=== PATIENT | female | born 1950 | race Caucasian/White ===

== ENCOUNTER → 2018-09-28 | Outpatient (CLI) | payer MEDICARE, OTHER | END | disposition home or self-care (01) | LOC: RAH 14:04 | PROVIDERS: ATTEND Nurse Practitioner Adult Health | DX: N39.0 Urinary tract infection, site not specified (principal); Z87.440 Personal history of urinary (tract) infections | CPT/HCPCS: 76770 ==

== ENCOUNTER → 2019-05-09 | Outpatient (CLI) | payer MEDICARE, OTHER | END | disposition home or self-care (01) | LOC: OIH 12:43 | PROVIDERS: ATTEND Nurse Practitioner Adult Health | DX: R07.81 Pleurodynia (principal); M85.88 Other specified disorders of bone density and structure, other site | CPT/HCPCS: 71100 ==

== ENCOUNTER → 2019-05-16 | Outpatient (CLI) | payer MEDICARE, OTHER | END | disposition home or self-care (01) | LOC: RAH 14:04 | PROVIDERS: ATTEND Nurse Practitioner Adult Health | DX: Z12.31 Encounter for screening mammogram for malignant neoplasm of breast (principal) | CPT/HCPCS: 77067 ==

== ENCOUNTER → 2020-12-15 | Outpatient (CLI) | payer MEDICARE, OTHER | END | disposition home or self-care (01) | LOC: RAH 13:36 | PROVIDERS: ATTEND Nurse Practitioner Adult Health | DX: M79.603 Pain in arm, unspecified (principal) | CPT/HCPCS: 72040 ==

== ENCOUNTER → 2021-01-05 | Outpatient (CLI) | payer MEDICARE, OTHER | END | disposition home or self-care (01) | LOC: RAH 07:38 | PROVIDERS: ATTEND Nurse Practitioner Adult Health | DX: M50.323 Other cervical disc degeneration at C6-C7 level (principal); M48.02 Spinal stenosis, cervical region; M25.78 Osteophyte, vertebrae | CPT/HCPCS: 72141 ==

== ENCOUNTER → 2023-02-28 | Outpatient (CLI) | payer MEDICARE, OTHER | END | disposition home or self-care (01) | LOC: RAH 15:12 | PROVIDERS: ATTEND Nurse Practitioner Adult Health | DX: R59.0 Localized enlarged lymph nodes (principal) | CPT/HCPCS: 71046 ==

== ENCOUNTER → 2023-03-09 | Outpatient (CLI) | payer MEDICARE, OTHER ==
[~2023-03-09] MED LIST: IOHEXOL-350 75 ML VIAL IV ONE
== END | disposition home or self-care (01) ==
LOC: RAH 13:32
PROVIDERS: ATTEND Nurse Practitioner Adult Health
DX: R59.9 Enlarged lymph nodes, unspecified (principal); N28.89 Other specified disorders of kidney and ureter; M47.815 Spondylosis without myelopathy or radiculopathy, thoracolumbar region; Z90.49 Acquired absence of other specified parts of digestive tract
CPT/HCPCS: 71260; Q9967

== ENCOUNTER → 2023-03-10 | Outpatient (CLI) | payer MEDICARE, OTHER | END | disposition home or self-care (01) | LOC: RAH 10:24 | PROVIDERS: ATTEND Nurse Practitioner Adult Health | DX: R59.9 Enlarged lymph nodes, unspecified (principal) | CPT/HCPCS: 77066; Q9967 ==

== ENCOUNTER → 2023-04-22 | Outpatient (CLI) | payer MEDICARE, OTHER ==
[~2023-04-22] MED LIST changes: +IOHEXOL 350 MG/ML 100ML INFUS..BTL IV ONE; -IOHEXOL-350 75 ML VIAL IV ONE
== END | disposition home or self-care (01) ==
LOC: RAH 10:46
PROVIDERS: ATTEND Internal Medicine Cardiovascular Disease
DX: R06.02 Shortness of breath (principal); I20.9 Angina pectoris, unspecified
CPT/HCPCS: 75574; Q9967

== ENCOUNTER → 2025-08-23 | Outpatient (CLI) | payer MEDICARE, OTHER ==
--- NOTE | 2025-08-24 01:39 | HMCIMG ---
EXAM: CR LEFT WRIST, 3 VIEWS CLINICAL HISTORY: Left wrist pain COMPARISON: None provided TECHNIQUE: PA, lateral and oblique views of the left wrist were obtained. FINDINGS: Bones: No acute fracture or dislocation. Bone density is preserved. Joints: Mild degenerative changes are noted in the radiocarpal and carpometacarpal joints, with joint space narrowing and marginal osteophyte formation. Soft Tissues: Unremarkable. No significant soft tissue swelling or mass. Impression: 1.Degenerative changes of the left radiocarpal and carpometacarpal joints. 2.No acute osseous or articular abnormality. /[place]
--- NOTE | 2025-08-24 07:57 | HMCIMG ---
EXAM: CR Cervical Spine, 3 Views. CLINICAL HISTORY: Cervicalgia. COMPARISON: None provided. FINDINGS: BONES: Posterior spinal fusion fixators noted at C2-T2 level. No acute fracture or aggressive appearing osseous lesion. DISCS/DEGENERATIVE CHANGES: Loss of cervical lordosis due to paraspinal muscle spasm. There are anterior marginal osteophytes noted at C3-C6 level with reduced disc spaces at C5-T2 levels. Grade 1 anterior listhesis of C7 over T1. SOFT TISSUES: No prevertebral soft tissue swelling. The visualized lung apices are clear. IMPRESSION: Intact posterior spinal fusion fixators. Grade 1 anterior listhesis of C7 over T1. Degenerative spondylosis. Recommend MR cervical spine. /[place]
== END | disposition home or self-care (01) ==
LOC: RAH 12:48
PROVIDERS: ATTEND Nurse Practitioner Adult Health
DX: M47.812 Spondylosis without myelopathy or radiculopathy, cervical region (principal); M43.13 Spondylolisthesis, cervicothoracic region; M25.78 Osteophyte, vertebrae; M50.33 Other cervical disc degeneration, cervicothoracic region; M19.032 Primary osteoarthritis, left wrist; M25.732 Osteophyte, left wrist; M25.532 Pain in left wrist
CPT/HCPCS: 72040; 73110